=== PATIENT | female | born 2005 | race Caucasian/White ===

== ENCOUNTER 2024-10-21 20:58 | Inpatient (IN) ==
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
[2024-10-21] MEDS: SODIUM CHLORIDE 0.9% 1,000 ML IV ONE ×2 (21:50→22:55)
[2024-10-21] MEDS: ACETAMINOPHEN 1,000 MG/100 ML VIAL IV STA (21:50)
[2024-10-21] MEDS: ONDANSETRON INJ 2 MG/ML 2 ML VIAL IV STA (21:51)
[2024-10-21 22:02] LABS: Basophils # (auto) 0.07 K/uL (0.00-0.20); Basophils % (auto) 0.3 %; Eosinophils # (auto) 0.01 K/uL (0.00-0.50); Hematocrit (blood only) 37.8 % (37.0-47.0); Hemoglobin 12.6 g/dl (12.0-16.0); Immature Granulocytes # (auto) 0.14 K/uL (0.01-0.20); Immature Granulocytes % (auto) 0.6 %; Lymphocytes # (auto) 1.63 K/uL (1.20-3.40); Lymphocytes % (auto) 7.2 %; Mean Corpuscular Hemoglobin 27.8 pg (25.0-34.0); Mean Corpuscular Hgb Conc 33.3 g/dL (32.0-36.0); Mean Corpuscular Volume 83.3 fL (80.0-100.0); Mean Platelet Volume 9.7 fL (9.4-12.4); Monocytes # (auto) 1.81 K/uL (0.11-0.59); Neutrophils % (auto) 83.9 %; Platelet Count 297 K/uL (130-400); RDW Coefficient of Variation 13.2 % (11.5-14.5); RDW Standard Deviation 40.2 fL (36.4-46.3); Red Blood Count 4.54 M/uL (4.20-5.40); White Blood Count 22.56 K/ul (4.8-10.8)
[2024-10-21] MEDS: FAMOTIDINE 20MG IV PUSH 20 MG/5 ML SYR IV STA (22:06)
[2024-10-21 22:13] LABS: Pregnancy Test, Serum Negative (Negative)
[2024-10-21 22:21] LABS: Albumin Globulin Ratio 1.4 (0.9-2); Albumin Level 4.6 gm/dl (3.4-5.0); BUN Creatinine Ratio 8.1 (10-20); Bilirubin,Total 1.7 mg/dl (0.2-1.0); Calcium 9.6 mg/dl (8.6-10.3); Creatinine Clr Calc Pharmacy 104.7 ml/min; Globulin 3.3 gm/dl (2.5-4.0); Potassium 3.8 mmol/L (3.5-5.1); Total Protein 7.9 gm/dl (6.0-8.3)
[2024-10-21 22:45] LABS: Adenovirus PCR Not Detected (NotDetected); Bordetella parapertussis PCR Not Detected (NotDetected); Bordetella pertussis PCR Not Detected (NotDetected); Chlamydia pneumoniae PCR Not Detected (NotDetected); Coronavirus 229E PCR Not Detected (NotDetected); Coronavirus CoV-2 (COVID19)PCR Not Detected (NotDetected); Coronavirus HKU1 PCR Not Detected (NotDetected); Coronavirus NL63 PCR Not Detected (NotDetected); Coronavirus OC43PCR Not Detected (NotDetected); Human Metapneumovirus PCR Not Detected (NotDetected); Influenza A PCR Not Detected (NotDetected); Influenza B PCR Not Detected (NotDetected); Mycoplasma pneumoniae PCR Not Detected (NotDetected); Parainfluenza Virus 1 PCR Not Detected (NotDetected); Parainfluenza Virus 2 PCR Not Detected (NotDetected); Parainfluenza Virus 3 PCR Not Detected (NotDetected); Parainfluenza Virus 4 PCR Not Detected (NotDetected); Respiratory Syncytial VirusPCR Not Detected (NotDetected); Rhinovirus/Enterovirus PCR Not Detected (NotDetected)
[2024-10-21] MEDS: AMOXICILLIN 500 MG CAP PO STA (23:28)
[2024-10-21] MEDS: dexAMETHasone**PF** 10 MG/ML VIAL IV ONE (23:28)
--- NOTE | 2024-10-22 00:28 | XRay Report ---
Exam(s): XR CXR 1 VIEW EXAM: XR Chest, 1 View CLINICAL HISTORY: fever. TECHNIQUE: Frontal view of the chest. COMPARISON: No relevant prior studies available. FINDINGS: Lungs: No focal consolidation. The pulmonary vasculature demonstrates no significant radiographic abnormality. Pleural space: Unremarkable. No pneumothorax. No large pleural effusion. Heart: Unremarkable. No cardiomegaly. Mediastinum: No significant abnormality identified. The trachea is midline. Bones/joints: Unremarkable. No acute fracture. IMPRESSION: No focal consolidation or acute cardiopulmonary process identified. Electronically signed by: David Maria MD 10/22/24 00:27 AM
[2024-10-22 02:59] LABS: Appearance Urine Cloudy (Clear); Bacteria Urine Automated 3+ (None Seen); Bilirubin Urine Negative (Negative); Blood Urine Trace (Negative); Color Urine Yellow; Glucose Urine UA Negative (Negative); Ketones Urine 4+ (Negative); Leukocyte Esterase Urine 3+ (Negative); Nitrite Urine Negative (Negative); Protein Urine Trace (Negative); Specific Gravity Urine 1.014 (1.000-1.030); Urobilinogen Urine Negative (Negative); WBC Urine Automated 21-50 /hpf (0-5)
[2024-10-22 03:06] LABS: Amphetamines+Metham, Urine Neg (Neg); Barbiturates, Urine Neg (Neg); Benzodiazepine, Urine Neg (Neg); Cocaine, Urine Neg (Neg); Fentanyl, Urine Neg (Neg); MDMA (Ecstacy), Urine Neg (Neg); Marijuana, Urine Neg (Neg); Methadone, Urine Neg (Neg); Opiate, Urine Neg (Neg); Phencyclidine, Urine Neg (Neg)
[2024-10-22 04:17] LABS: Acetaminophen 4 ug/ml (10-30); Salicylate < 3.0 mg/dl (3.0-30)
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
[2024-10-22] MEDS: IBUPROFEN 200 MG TAB PO STA (05:39)
--- NOTE | 2024-10-22 08:49 | Emergency Department Note ---
ED Visit Note Patient was signed out to me pending bed search. She is a 302. The plan was that she was being evaluated by [facility] inpatient psychiatric unit, [facility]. However, they had to "clear up by infectious disease" for her to be up on their unit given her strep throat diagnosis. I was updated at 8:48 AM that the patient would need to "be on antibiotics for 24 hours and off of Tylenol for any fever for 24 hours." Sent a message to Maria Dolores Shaw at 8:55 AM, who is the on-call "infection prevention and control nurse." Discussed requesting clarification for parameters that they have laid down for the patient being held in the emergency department for 24 hours. They stated the patient need to be on antibiotics for 24 hours and not receive any medication for fever for 24 hours before she can be deemed "medically cleared." A bed search was reinitiated. Met with patient and her mother at 1110 to discuss the current delay in her placement. Patient is agitated about the 302 stating that she is never made suicidal ideation. Mother is requesting psychiatric evaluation, as she does not feel the patient is a threat to herself and does not believe the 302 petition statements. Patient states that "I have text from the person who petitioned me that she is also suicidal and I could petition her right back." Patient was evaluated by [place] psychiatrist, Dr. Peace. Dr. Mendiola agreed with upholding the patient's 302 and states that [facility] would be agreeable to taking the patient at around 11 PM when she is officially medically cleared as long as she does not develop a fever again and required Tylenol in this 24-hour period. Patient will be monitored in the emergency department and admitted to [facility] pending the above criteria. .
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
[2024-10-22] MEDS: AMOXICILLIN 500 MG CAP PO SCH (20:58)
--- NOTE | 2024-10-22 21:16 | Emergency Department Note ---
ED Visit Note I assumed care at the change of shift. The patient was involuntary psychiatric admission. She was to be transferred to this hospital's psychiatric floor, 3 S. at around 11 PM. The psychiatry team asked that I order a dose of oral Ativan to help take away some of her anxiety and stress about the hospitalization. This was done as per their request, 1 mg was ordered. .
[2024-10-22] MEDS ORDERED: ALUMINUM/MAGNESIUM SUSP 30 ML UDC PO PRN (21:22)
[2024-10-22] MEDS ORDERED: ACETAMINOPHEN 325 MG TAB PO PRN (21:22)
[2024-10-22] MEDS ORDERED: BISMUTH SUBSALICYLATE 262 MG CHEW PO PRN (21:22)
[2024-10-22] MEDS ORDERED: MAGNESIUM HYDROXIDE SUSP 30 ML UDC PO PRN (21:22)
[2024-10-22] MEDS: LORazepam 1 MG TAB SL STA ×2 (21:30→23:05)
--- NOTE | 2024-10-22 22:42 | Emergency Department Note ---
ED Visit Note An additional 2 mg of sublingual Ativan was required as the patient was still quite anxious after just 1 mg. .
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
[2024-10-23] MEDS: NICOTINE 14 MG/24 HR PATCH TD SCH (12:20)
[2024-10-23] MEDS: NICOTINE POLACRILEX 2 MG GUM MT PRN (12:20)
[2024-10-23] MEDS: hydrOXYzine HCl 25 MG TAB PO PRN ×2 (13:02→20:28)
[2024-10-23] MEDS: FLUoxetine HCL 10 MG CAP PO ONE (13:31)
[2024-10-23] MEDS ORDERED: AMOXICILLIN 875 MG TAB PO SCH ×2 (17:45→21:00)
[2024-10-23] MEDS: SODIUM CHLORIDE 0.65% NA SOLN 45 ML (OCEAN) PRN (18:51)
[2024-10-23] MEDS: AMOXICILLIN 500 MG CAP PO SCH (20:29)
[2024-10-23] MEDS: cloNIDine HCL 0.1 MG TAB PO SCH (20:29)
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
[2024-10-24] MEDS: FLUoxetine HCL 20 MG CAP PO SCH (08:52)
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
== END 2024-10-24 14:35 | disposition home or self-care (01) | DRG 880 ==
LOC: ED 20:58 → 3S 10-22 21:22